=== PATIENT | male | born 1950 | race Caucasian/White ===

== ENCOUNTER 2020-07-07 11:10 | Inpatient (IN) | payer OTHER, SELFPAY ==
--- NOTE | 2020-07-07 11:13 | Emergency Department Report ---
Blank Doc - Documentation Documentation: 6-year-old male that presents with generalized weakness, body aches, cough, di arrhea, abdominal pain. This initial assessment/diagnostic orders/clinical plan/treatment(s) is/are subject to change based on patient's health status, clinical progression and re- assessment by fellow clinical providers in the ED. Further treatment and workup at subsequent clinical providers discretion. Patient/guardians urged not to elope from the ED as their condition may be serious if not clinically assessed and managed. Initial orders include: 1- Patient sent to MAIN ED for further evaluation and treatment 2- labs 3- EKG 4- CXR
[2020-07-07 13:08] LABS: Hematocrit 38.2 % (35.5-45.6); Hemoglobin 12.9 gm/dl (11.8-15.2); Mean Corpuscular HGB Conc 34 % (32-34); Mean Corpuscular Volume 91 fl (84-94); Platelet Count 143 K/mm3 (140-440); Red Blood Count 4.21 M/mm3 (3.65-5.03)
--- NOTE | 2020-07-07 13:10 | XRay Report ---
XR chest routine 2V INDICATION / CLINICAL INFORMATION: Chest Pain COMPARISON: None available. FINDINGS: SUPPORT DEVICES: None. HEART / MEDIASTINUM: No significant abnormality. LUNGS / PLEURA: Is interstitial thickening are likely chronic. No definite airspace disease. Costophr enic sulci are sharp. No pneumothorax. ADDITIONAL FINDINGS: No significant additional findings. IMPRESSION: 1. Mild interstitial thickening is likely chronic. No definite acute abnormality. Signer Name: Marcelo Salas MD Signed: 07/07/2020 1:05 PM Workstation Name: [id number]
[2020-07-07 13:29] LABS: Alanine Aminotransferase 12 units/L (7-56); Albumin 3.7 g/dL (3.9-5); BUN/Creatinine Ratio 25; Blood Urea Nitrogen 30 mg/dL (9-20); Calcium 9.3 mg/dL (8.4-10.2); Hemolysis Index 3
[2020-07-07 13:39] LABS: INR 0.84 (0.87-1.13); Partial Thromboplastin Time 27.2 Sec. (24.2-36.6)
[2020-07-07 14:38] LABS: Basophils % (Manual) 0 % (0.0-1.8); Eosinophils % (Manual) 0 % (0.0-4.3); Total Cells Counted 100
[2020-07-07 14:39] LABS: Platelet Estimate Consistent w Auto; RBC Morphology Normal
[2020-07-07] MEDS ORDERED: ONDANSETRON 4 MG/2 ML INJ IV ONE (14:39)
[2020-07-07] MEDS ORDERED: SODIUM CHLORIDE 0.9% 1000 ML 1,000 ML IV ONE (14:39)
--- NOTE | 2020-07-07 14:50 | Emergency Department Report ---
ED General Adult HPI - General Chief complaint: Weakness Stated complaint: FEEL VERY BAD Time Seen by Provider: 07/07/20 11:11 Source: patient Mode of arrival: Ambulatory Limitations: No Limitations - History of Present Illness Initial comments: Patient is 69 years old male. Translation is done by our patient marketing sales representative from the ER. Patient has history of hypertension and diabetes. Patient presented to the ER complaining of generalized weakness and fatigue and body ache for the last few days. Patient also stated that he has been having diarrhea, watery no blood or mucus. Patient also stated that he has been nauseated but no vomiting. Patient denied any chest pain or shortness of breath. He also denied any cough fever or chills. He is complaining of diffuse abdominal pain. -: days(s) Location: abdomen Consistency: constant - Related Data Previous Rx's Medication Instructions Recorded Last Taken Type Acetaminophen [Acetaminophen TAB] 650 mg PO Q4H PRN tablet 07/10/20 Unknown Rx Insulin Glargine [Lantus VIAL] 18 units SUB-Q QHS #1 units 07/10/20 Unknown Rx NIFEdipine XL [Procardia Xl] 60 mg PO QDAY #30 tablet 07/10/20 Unknown Rx Pantoprazole [Protonix TAB] 40 mg PO BID #14 tablet 07/10/20 Unknown Rx Zolpidem [Ambien] 5 mg PO QHS PRN tablet 07/10/20 Unknown Rx dexAMETHasone [Decadron] 6 mg PO DAILY #7 tablet 07/10/20 Unknown Rx Allergies Allergy/AdvReac Type Severity Reaction Status Date / Time No Known Allergies Allergy Verified 07/07/20 11:13 ED Review of Systems ROS: Stated complaint: FEEL VERY BAD Other details as noted in HPI Comment: All other systems reviewed and negative Constitutional: chills, weakness Respiratory: denies: cough, shortness of breath Gastrointestinal: abdominal pain, nausea Musculoskeletal: denies: back pain Neurological: weakness. denies: headache, numbness, paresthesias, confusion, abnormal gait ED Past Medical Hx - Past Medical History Previous Medical History?: Yes Hx Diabetes: Yes - Surgical History Past Surgical History?: No - Social History Smoking Status: Never Smoker Substance Use Type: None - Medications Home Medications: Home Medications Medication Instructions Recorded Confirmed Last Taken Type Acetaminophen [Acetaminophen TAB] 650 mg PO Q4H PRN tablet 07/10/20 Unknown Rx Insulin Glargine [Lantus VIAL] 18 units SUB-Q QHS #1 units 07/10/20 Unknown Rx NIFEdipine XL [Procardia Xl] 60 mg PO QDAY #30 tablet 07/10/20 Unknown Rx Pantoprazole [Protonix TAB] 40 mg PO BID #14 tablet 07/10/20 Unknown Rx Zolpidem [Ambien] 5 mg PO QHS PRN tablet 07/10/20 Unknown Rx dexAMETHasone [Decadron] 6 mg PO DAILY #7 tablet 07/10/20 Unknown Rx ED Physical Exam - General Limitations: No Limitations General appearance: alert, in no apparent distress - Head Head exam: Present: atraumatic, normocephalic, normal inspection - Eye Eye exam: Present: normal appearance - ENT ENT exam: Present: mucous membranes dry - Neck Neck exam: Present: normal inspection, full ROM. Absent: tenderness, me ningismus - Respiratory Respiratory exam: Present: normal lung sounds bilaterally - Cardiovascular Cardiovascular Exam: Present: regular rate, normal rhythm, normal heart sounds - GI/Abdominal GI/Abdominal exam: Present: soft, tenderness, normal bowel sounds. Absent: distended, guarding, rebound, rigid, organomegaly, mass, bruit, pulsatile mass, hernia - Extremities Exam Extremities exam: Present: normal inspection, full ROM, normal capillary refill - Back Exam Back exam: Present: normal inspection, full ROM. Absent: CVA tenderness (R), CVA tenderness (L) - Neurological Exam Neurological exam: Present: alert, oriented X3, CN II-XII intact. Absent: motor sensory deficit - Psychiatric Psychiatric exam: Present: normal mood - Skin Skin exam: Present: warm, intact, normal color ED Course Vital Signs 07/07/20 07/07/20 07/07/20 11:16 11:17 14:35 Temperature 98.9 F 98.9 F Pulse Rate 84 81 Respiratory 16 18 18 Rate Blood Pressure 193/76 Blood Pressure 193/76 [Left] O2 Sat by Pulse 97 97 100 Oximetry 07/07/20 07/07/20 07/07/20 14:42 15:00 16:00 Temperature Pulse Rate 72 71 73 Respiratory 17 17 17 Rate Blood Pressure Blood Pressure 203/76 207/83 206/78 [Left] O2 Sat by Pulse 98 98 98 Oximetry 07/07/20 07/07/20 07/07/20 17:00 17:30 21:02 Temperature Pulse Rate 69 70 Respiratory 18 18 Rate Blood Pressure 216/78 Blood Pressure 191/75 196/77 [Left] O2 Sat by Pulse 98 98 Oximetry 07/07/20 07/07/20 07/07/20 21:27 21:30 22:00 Temperature Pulse Rate 97 H Respiratory Rate Blood Pressure 216/78 213/82 184/72 Blood Pressure [Left] O2 Sat by Pulse Oximetry 07/07/20 07/07/20 22:43 22:55 Temperature 98.0 F Pulse Rate 78 Respiratory 18 20 Rate Blood Pressure 196/80 Blood Pressure [Left] O2 Sat by Pulse 98 98 Oximetry ED Medical Decision Making - Lab Data Result diagrams: 07/10/20 07:22 07/10/20 07:22 - EKG Data -: EKG Interpreted by Me EKG shows normal: sinus rhythm Rate: normal - EKG Data Interpretation: no acute changes - Radiology Data Radiology results: report reviewed - Medical Decision Making Patient is 69 years old male. Translation is done by our patient marketing sales representative from the ER. Patient has history of hypertension and diabetes. Patient presented to the ER complaining of generalized weakness and fatigue and body ache for the last few days. Patient also stated that he has been having diarrhea, watery no blood or mucus. Patient also stated that he has been nauseated but no vomiting. Patient denied any chest pain or shortness of breath. He also denied any cough fever or chills. He is complaining of diffuse abdominal pain. Patient received normal saline, Zofran. Labs reviewed and is unremarkable. Chest x-ray is negative. CT abdomen and pelvis showed no significant abnormality in the abdomen however there is a groundglass appearance in the lower lungs indicating atypical pneumonia. Patient started on Rocephin and Z ithromax patient is symptoms concerning for COVID-19. COVID-19 test ordered. I discussed the patient with Dr. Domínguez, he agreed to admit the patient to medical service for further management. Critical Care Time: Yes Critical care time in (mins) excluding proc time.: 30 Critical care attestation.: If time is entered above; I have spent that time in minutes in the direct care of this critically ill patient, excluding procedure time. ED Disposition Clinical Impression: Pneumonia of both lower lobes, Suspected COVID-19 virus infection, Abdominal pain, Dehydration Disposition: OP ADMIT IP TO THIS HOSP Is pt being admited?: Yes Condition: Good
--- NOTE | 2020-07-07 18:55 | Cat Scan Report ---
CT ABDOMEN AND PELVIS WITH CONTRAST INDICATION / CLINICAL INFORMATION: abdominal pain. TECHNIQUE: Axial CT images were obtained through the abdomen and pelvis after 100 mL Omnipaque [address] scans at this location are performed using CT dose reduction for ALARA by means of automated exposure control. COMPARISON: None available. FINDINGS: LOWER CHEST: Patchy bibasilar parenchymal densities some of which appear groundglass density. LIVER: Liver is slightly hypodense extra stick of fatty infiltration. No focal abnormality. GALLBLADDER: No significant abnormality. BILE DUCTS: No significant abnormality. PANCREAS: No significant abnormality. SPLEEN: No significant abnormality. ADRENALS: No significant abnormality. RIGHT KIDNEY / URETER: No significant abnormality. LEFT KIDNEY / URETER: No significant abnormality. STOMACH / SMALL BOWEL: Small sliding-type hiatal hernia. No small bowel abnormality. COLON: Mild diverticulosis without acute inflammation. APPENDIX: No significant abnormality. PERITONEUM: No free fluid. No free air. No fluid collection. LYMPH NODES: No significant adenopathy. AORTA / ARTERIES: Mild atherosclerotic calcification without acute abnormality. IVC / VEINS: No significant abnormality. URINARY BLADDER: No significant abnormality. REPRODUCTIVE ORGANS: No significant abnormality. ADDITIONAL FINDINGS: None. SKELETAL SYSTEM: No significant abnormality. IMPRESSION: 1. No inflammatory process or bowel obstruction. 2. Small hiatal hernia. 3. Bibasilar patchy pulmonary opacities with some groundglass densities. Atypical/viral pneumonia serge uld be considered. Signer Name: Janett Glaser MD Signed: 07/07/2020 6:50 PM Workstation Name: [id number]
[2020-07-07] MEDS ORDERED: AZITHROMYCIN 500 MG in SODIUM CHLORIDE 0.9% 250ML 250 ML IV ONE (19:23)
[2020-07-07] MEDS ORDERED: cefTRIAXone/NS 1 GM/50 ML 1 GM/50 ML BAG IV ONE (19:23)
[2020-07-07 20:30] LABS: C-Reactive Protein 6.3 mg/dL (0.00-1.30)
--- NOTE | 2020-07-07 20:59 | Cat Scan Report ---
CT CHEST WITHOUT CONTRAST INDICATION / CLINICAL INFORMATION: Chest pain. Pulmonary opacities on CT abdomen. TECHNIQUE: Axial CT images were obtained through the chest without contrast. All CT scans at this location are p erformed using CT dose reduction for ALARA by means of automated exposure control. COMPARISON: No prior chest CT. CT abdomen from earlier in the day. FINDINGS: HEART: No significant abnormality. CORONARY ARTERY CALCIFICATION: Moderate. THORACIC AORTA: Mild atherosclerotic calcification without acute abnormality. MEDIASTINUM / TORREY: No significant abnormality. PLEURA: No pleural effusion. No pneumothorax. LUNGS: Multifocal, bilateral, patchy pulmonary opacities some of which have groundglass density. Atyp ical/viral pneumonia can have this appearance. ADDITIONAL FINDINGS: None. UPPER ABDOMEN: No significant abnormality. SKELETAL SYSTEM: No significant abnormality. IMPRESSION: 1. Bilateral pulmonary opacities, some of which have groundglass density. Atypical/viral pneumonia sh ould be considered. Signer Name: Janett Glaser MD Signed: 07/07/2020 8:54 PM Workstation Name: [id number]
[2020-07-07 23:03] LABS: Bilirubin,Urine NEG (Negative); Blood,Urine MOD (Negative); Color,Urine Straw (Yellow); Urobilinogen,Urine < 2.0 mg/dL (<2.0); WBC,Urine < 1.0 /HPF (0.0-6.0)
[2020-07-07 23:11] LABS: Protein,Urine >500 mg/dL (Negative)
--- NOTE | 2020-07-08 04:57 | History and Physical Report ---
History of Present Illness Date of examination: 07/07/20 Date of admission: 07/07/20 19:24 Chief complaint: Generalized weakness and diarrhea for 2 to 3 days. History of present illness: 69-year-old male with history of hypertension and diabetes comes to the ER for generalized weakness, fatigue and body aches for the last few days. Patient also has diarrhea which is watery. No blood or mucus. Patient states he has been nauseated but no vomiting. No loss of smell. No loss of taste. No exposure to coronavirus. Also denies fever. Work-up in the emergency room reveals bilateral patchy opacities. Hence patient is being admitted for possible coronavirus infection. - Past Medical History Previous Medical History?: Yes Hx Diabetes: Yes Htn - Surgical History Past Surgical History?: No - Social History Smoking Status: Never Smoker Substance Use Type: None Family history Htn Review of Systems ROS: Stated complaint: FEEL VERY BAD Other details as noted in HPI Comment: All other systems reviewed and negative Constitutional: chills, weakness Respiratory: denies: cough, shortness of breath Gastrointestinal: abdominal pain, nausea Musculoskeletal: denies: back pain Neurological: weakness. denies: headache, numbness, paresthesias, confusion, abnormal gait Medications and Allergies Allergies Allergy/AdvReac Type Severity Reaction Status Date / Time No Known Allergies Allergy Verified 07/07/20 11:13 Exam - Constitutional Vitals: Temp Pulse Resp BP Pulse Ox 98.9 F 97 H 18 216/78 98 07/07/20 11:16 07/07/20 21:27 07/07/20 22:43 07/07/20 21:27 07/07/20 22:43 General appearance: Present: no acute distress, well-nourished - EENT Eyes: Present: PERRL ENT: hearing intact, clear oral mucosa - Neck Neck: Present: supple, normal ROM - Respiratory Respiratory effort: normal Respiratory: bilateral: CTA - Cardiovascular Heart rate: 78 Rhythm: regular Heart Sounds: Present: S1 & S2. Absent: rub, click - Extremities Extremities: pulses symmetrical, No edema Peripheral Pulses: within normal limits - Abdominal General gastrointestinal: Present: soft, non-tender, non-distended, normal bowel sounds Male genitourinary: Present: normal - Integumentary Integumentary: Present: clear, warm, dry - Musculoskeletal Musculoskeletal: gait normal, strength equal bilaterally - Psychiatric Psychiatric: appropriate mood/affect, intact judgment & insight - Neurologic Neurologic: CNII-XII intact, moves all extremities HEART Score - HEART Score Troponin: Troponin T < 0.010 ng/mL (0.00-0.029) 07/07/20 12:32 Results - Labs CBC & Chem 7: 07/07/20 12:32 07/07/20 19:46 Labs: Laboratory Last Values WBC 6.8 K/mm3 (4.5-11.0) 07/07/20 12:32 RBC 4.21 M/mm3 (3.65-5.03) 07/07/20 12:32 Hgb 12.9 gm/dl (11.8-15.2) 07/07/20 12:32 Hct 38.2 % (35.5-45.6) 07/07/20 12:32 MCV 91 fl (84-94) 07/07/20 12:32 MCH 31 pg (28-32) 07/07/20 12:32 MCHC 34 % (32-34) 07/07/20 12:32 RDW 13.0 % (13.2-15.2) L 07/07/20 12:32 Plt Count 143 K/mm3 (140-440) 07/07/20 12:32 [place] % (Auto) Industrial Psychology Teacher 07/07/20 12:32 Add Manual Diff Complete 07/07/20 12:32 Total Counted 100 07/07/20 12:32 Seg Neuts % (Manual) 85.0 % (40.0-70.0) H 07/07/20 12:32 Band Neutrophils % 0 % 07/07/20 12:32 Lymphocytes % (Manual) 9.0 % (13.4-35.0) L 07/07/20 12:32 Reactive Lymphs % (Man) 0 % 07/07/20 12:32 Monocytes % (Manual) 6.0 % (0.0-7.3) 07/07/20 12:32 Eosinophils % (Manual) 0 % (0.0-4.3) 07/07/20 12:32 Basophils % (Manual) 0 % (0.0-1.8) 07/07/20 12:32 Metamyelocytes % 0 % 07/07/20 12:32 Myelocytes % 0 % 07/07/20 12:32 Promyelocytes % 0 % 07/07/20 12:32 Blast Cells % 0 % 07/07/20 12:32 Nucleated RBC % Not Reportable 07/07/20 12:32 Seg Neutrophils # Man 5.8 K/mm3 (1.8-7.7) 07/07/20 12:32 Band Neutrophils # 0.0 K/mm3 07/07/20 12:32 Lymphocytes # (Manual) 0.6 K/mm3 (1.2-5.4) L 07/07/20 12:32 Abs React Lymphs (Man) 0.0 K/mm3 07/07/20 12:32 Monocytes # (Manual) 0.4 K/mm3 (0.0-0.8) 07/07/20 12:32 Eosinophils # (Manual) 0.0 K/mm3 (0.0-0.4) 07/07/20 12:32 Basophils # (Manual) 0.0 K/mm3 (0.0-0.1) 07/07/20 12:32 Metamyelocytes # 0.0 K/mm3 07/07/20 12:32 Myelocytes # 0.0 K/mm3 07/07/20 12:32 Promyelocytes # 0.0 K/mm3 07/07/20 12:32 Blast Cells # 0.0 K/mm3 07/07/20 12:32 WBC Morphology Not Reportable 07/07/20 12:32 Hypersegmented Neuts Not Reportable 07/07/20 12:32 Hyposegmented Neuts Not Reportable 07/07/20 12:32 Hypogranular Neuts Not Reportable 07/07/20 12:32 Smudge Cells Not Reportable 07/07/20 12:32 Toxic Granulation Not Reportable 07/07/20 12:32 Toxic Vacuolation Not Reportable 07/07/20 12:32 Dohle Bodies Not Reportable 07/07/20 12:32 Pelger-Huet Anomaly Not Reportable 07/07/20 12:32 Marv Rods Not Reportable 07/07/20 12:32 Platelet Estimate Consistent w auto 07/07/20 12:32 Clumped Platelets Not Reportable 07/07/20 12:32 Plt Clumps, EDTA Not Reportable 07/07/20 12:32 Large Platelets Not Reportable 07/07/20 12:32 Giant Platelets Not Reportable 07/07/20 12:32 Platelet Satelliting Not Reportable 07/07/20 12:32 Plt Morphology Comment Not Reportable 07/07/20 12:32 RBC Morphology Normal 07/07/20 12:32 Dimorphic RBCs Not Reportable 07/07/20 12:32 Polychromasia Not Reportable 07/07/20 12:32 Hypochromasia Not Reportable 07/07/20 12:32 Poikilocytosis Not Reportable 07/07/20 12:32 Anisocytosis Not Reportable 07/07/20 12:32 Microcytosis Not Reportable 07/07/20 12:32 Macrocytosis Not Reportable 07/07/20 12:32 Spherocytes Not Reportable 07/07/20 12:32 Pappenheimer Bodies Not Reportable 07/07/20 12:32 Sickle Cells Not Reportable 07/07/20 12:32 Target Cells Not Reportable 07/07/20 12:32 Tear Drop Cells Not Reportable 07/07/20 12:32 Ovalocytes Not Reportable 07/07/20 12:32 Helmet Cells Not Reportable 07/07/20 12:32 Klein-Jarales Bodies Not Reportable 07/07/20 12:32 [place] Rings Not Reportable 07/07/20 12:32 [place] Cells Not Reportable 07/07/20 12:32 Bite Cells Not Reportable 07/07/20 12:32 Crenated Cell Not Reportable 07/07/20 12:32 Elliptocytes Not Reportable 07/07/20 12:32 Acanthocytes (Spur) Not Reportable 07/07/20 12:32 Rouleaux Not Reportable 07/07/20 12:32 Hemoglobin C Crystals Not Reportable 07/07/20 12:32 Schistocytes Not Reportable 07/07/20 12:32 Malaria parasites Not Reportable 07/07/20 12:32 Reid Bodies Not Reportable 07/07/20 12:32 Hem Pathologist Commnt No 07/07/20 12:32 PT 11.7 Sec. (12.2-14.9) L 07/07/20 12:32 INR 0.84 (0.87-1.13) L 07/07/20 12:32 APTT 27.2 Sec. (24.2-36.6) 07/07/20 12:32 D-Dimer 567.90 ng/mlDDU (0-234) H 07/07/20 19:46 Sodium 135 mmol/L (137-145) L 07/07/20 12:32 Potassium 4.7 mmol/L (3.6-5.0) 07/07/20 12:32 Chloride 101.3 mmol/L (98-107) 07/07/20 12:32 Carbon Dioxide 20 mmol/L (22-30) L 07/07/20 12:32 Anion Gap 18 mmol/L 07/07/20 12:32 BUN 30 mg/dL (9-20) H 07/07/20 12:32 Creatinine 1.2 mg/dL (0.8-1.3) 07/07/20 12:32 Estimated GFR > 60 ml/min 07/07/20 12:32 BUN/Creatinine Ratio 25 % 07/07/20 12:32 Glucose 162 mg/dL (75-100) H 07/07/20 19:46 POC Glucose 196 (70-105) H 07/07/20 11:35 Calcium 9.3 mg/dL (8.4-10.2) 07/07/20 12:32 Ferritin 729.7 ng/mL (30.0-300.0) H 07/07/20 19:46 Total Bilirubin 0.30 mg/dL (0.1-1.2) 07/07/20 12:32 AST 23 units/L (5-40) 07/07/20 12:32 ALT 12 units/L (7-56) 07/07/20 12:32 Alkaline Phosphatase 67 units/L (35-129) 07/07/20 12:32 Lactate Dehydrogenase 343 units/L (91-180) H 07/07/20 19:46 Troponin T < 0.010 ng/mL (0.00-0.029) 07/07/20 12:32 C-Reactive Protein 6.30 mg/dL (0.00-1.30) H 07/07/20 19:46 Total Protein 6.9 g/dL (6.3-8.2) 07/07/20 12:32 Albumin 3.7 g/dL (3.9-5) L 07/07/20 12:32 Albumin/Globulin Ratio 1.2 % 07/07/20 12:32 Lipase 47 units/L (13-60) 07/07/20 12:32 Urine Color Straw (Yellow) 07/07/20 22:36 Urine Turbidity Clear (Clear) 07/07/20 22:36 Urine pH 5.0 (5.0-7.0) 07/07/20 22:36 Ur Specific [place] 1.044 (1.003-1.030) H 07/07/20 22:36 Urine Protein >500 mg/dL (Negative) 07/07/20 22:36 Urine Glucose (UA) Neg mg/dL (Negative) 07/07/20 22:36 Urine Ketones Tr mg/dL (Negative) 07/07/20 22:36 Urine Blood Mod (Negative) 07/07/20 22:36 Urine Nitrite Neg (Negative) 07/07/20 22:36 Urine Bilirubin Neg (Negative) 07/07/20 22:36 Urine Urobilinogen < 2.0 mg/dL (<2.0) 07/07/20 22:36 Ur Leukocyte Esterase Neg (Negative) 07/07/20 22:36 Urine WBC (Auto) < 1.0 /HPF (0.0-6.0) 07/07/20 22:36 Urine RBC (Auto) 2.0 /HPF (0.0-6.0) 07/07/20 22:36 U Epithel Cells (Auto) < 1.0 /HPF (0-13.0) 07/07/20 22:36 Short CBC 07/07/20 Range/Units 12:32 WBC 6.8 (4.5-11.0) K/mm3 Hgb 12.9 (11.8-15.2) gm/dl Hct 38.2 (35.5-45.6) % Plt Count 143 (140-440) K/mm3 BMP 07/07/20 07/07/20 12:32 19:46 Sodium 135 L Potassium 4.7 Chloride 101.3 Carbon Dioxide 20 L BUN 30 H Creatinine 1.2 Glucose 201 H 162 H Calcium 9.3 Cardiac Enzymes 07/07/20 Range/Units 12:32 Troponin T < 0.010 (0.00-0.029) ng/mL Liver Function 07/07/20 Range/Units 12:32 Total Bilirubin 0.30 (0.1-1.2) mg/dL AST 23 (5-40) units/L ALT 12 (7-56) units/L Alkaline Phosphatase 67 (35-129) units/L Albumin 3.7 L (3.9-5) g/dL Urine 07/07/20 Range/Units 22:36 Urine Color Straw (Yellow) Urine pH 5.0 (5.0-7.0) Ur Specific [place] 1.044 H (1.003-1.030) Urine Protein >500 (Negative) mg/dL Urine Glucose (UA) Neg (Negative) mg/dL Microbiology: Microbiology 07/07/20 19:51 Peripheral/Venous Blood Culture - Preliminary Culture in Progress 07/07/20 19:46 Peripheral/Venous Blood Culture - Preliminary Culture in Progress - Imaging and Cardiology Imaging and Cardiology: Chest x-ray Mild interstitial thickening is likely chronic. No definite acute abnormality. Abdominal CT bibasilar patchy pulmonary opacities with some groundglass densities. Atypical/viral pneumonia should be considered. Small hiatal hernia. No inflammatory process or bowel obstruction. Chest CT bilateral pulmonary opacities some of which have groundglass density. Atypical/viral pneumonia should be considered. Perioperative for not able to do any work so it is a question and sore see orders how this is currently on Xarelto added Dr. Domínguez version and anterior ischemia 6 AM in the morning 5 in the morning Do not worry about it aspirated regular physician not at 5 AM in the morning restraint orders thank you by By all of their own restaurant orders at 5 AM this is what makes him mad [place]/IV: Voiding Method Toilet IV Catheter Type [Right INT / Saline Lock Antecubital] Assessment and Plan Advance Directives: Yes (Full code) Plan of care discussed with patient/family: Yes - Patient Problems (1) Bilateral pneumonia Current Visit: Yes Status: Acute Plan to address problem: Patient initiated on Rocephin and Zithromax (2) Suspected COVID-19 virus infection Current Visit: Yes Status: Acute Plan to address problem: Coronavirus PCR requested. ID consult if necessary (3) T2DM (type 2 diabetes mellitus) Current Visit: Yes Status: Chronic Qualifiers: Diabetes mellitus penitentiary insulin use: without terminal system operator use Plan to address problem: Coverage for now Check hemoglobin A1c (4) Hypertension Current Visit: Yes Status: Chronic Qualifiers: Hypertension type: essential hypertension Qualified Code(s): I10 - Essential (primary) hypertension Plan to address problem: Patient is not on any medication. We will trend the blood pressure and start on antihypertensive medications if necessary (5) Hyponatremia Current Visit: Yes Status: Acute Plan to address problem: Very mild IV normal saline for 12 hours (6) Acute gastroenteritis Current Visit: Yes Status: Acute Plan to address problem: Possible manifestation of COVID IV normal saline for 12 hours. Further if necessary. (7) DVT prophylaxis Current Visit: Yes Status: Acute Plan to address problem: Lovenox 40 mg subcu daily and GI prophylaxis
[2020-07-08] MEDS ORDERED: ACETAMINOPHEN 325 MG TAB PO PRN (05:05)
[2020-07-08] MEDS ORDERED: ONDANSETRON 4 MG/2 ML INJ IV PRN (05:05)
[2020-07-08] MEDS ORDERED: HYDROmorphone 1 MG/1 ML INJ IV PRN (05:06)
[2020-07-08] MEDS ORDERED: oxyCODONE /ACETAMINOPHEN 5-325MG TAB PO PRN (05:06)
[2020-07-08] MEDS ORDERED: SODIUM CHLORIDE 0.9% 1000 ML 1,000 ML IV SCH (05:15)
[2020-07-08] MEDS ORDERED: dexAMETHasone 4 MG/ML VIAL IV SCH (06:00)
[2020-07-08 07:39] LABS: Basophils % (Auto) 0.1 % (0.0-1.8); Hematocrit 36.4 % (35.5-45.6); Hemoglobin 12.5 gm/dl (11.8-15.2); Lymphocytes # (Auto) 0.7 K/mm3 (1.2-5.4); Lymphocytes % (Auto) 8.3 % (13.4-35.0); Mean Corpuscular HGB Conc 34 % (32-34); Mean Corpuscular Volume 90 fl (84-94); Monocytes # (Auto) 1.3 K/mm3 (0.0-0.8); Platelet Count 157 K/mm3 (140-440); Red Blood Count 4.07 M/mm3 (3.65-5.03); Red Cell Distribution Width 13.1 % (13.2-15.2)
[2020-07-08 08:00] LABS: Calcium 8.7 mg/dL (8.4-10.2)
--- NOTE | 2020-07-08 08:34 | Progress Note ---
Assessment and Plan Assessment and plan: (1) Bilateral pneumonia Current Visit: Yes Status: Acute Plan to address problem: Patient initiated on Rocephin and Zithromax CT showed bilateral groundglass opacities/atypical pneumonia (2) Suspected COVID-19 virus infection Current Visit: Yes Status: Acute Plan to address problem: Coronavirus PCR requested. Still pending (3) T2DM (type 2 diabetes mellitus) Current Visit: Yes Status: Chronic Qualifiers: Diabetes mellitus terminologist insulin use: without terminologist use Plan to address problem: Coverage for now A1c is 7.5 (4) Hypertension Current Visit: Yes Status: Chronic Qualifiers: Hypertension type: essential hypertension Qualified Code(s): I10 - Essenti al (primary) hypertension Plan to address problem: I put the patient on amlodipine, lisinopril and PRN hydralazine Continue monitor and adjust as needed (5) Hyponatremia Current Visit: Yes Status: Acute Plan to address problem: Very mild IV normal saline for 12 hours (6) Acute gastroenteritis Current Visit: Yes Status: Acute Plan to address problem: Patient has diarrhea for the last 1 week, still have recurrent diarrhea and persistent vomiting. Continue with IV fluids, Zofran and Reglan scheduled, going to check stool for C. difficile, will do stool work-up. (7) DVT prophylaxis Current Visit: Yes Status: Acute Plan to address problem: Lovenox 40 mg subcu daily and GI prophylaxis History Interval history: Patient was seen and evaluated this morning Patient is complaining epigastric discomfort He has diarrhea and vomiting Hospitalist Physical - Physical exam Narrative exam: Not in cardiopulmonary distress. The patient appeared well nourished and normally developed. Vital signs as documented. Head exam is unremarkable. No scleral icterus . Neck is without jugular venous distension, thyromegaly, or carotid bruits. Lungs are clear to auscultation. Cardiac exam reveals regular rate and Rhythm. Abdominal exam reveals normal bowel sounds, nontender, no organomegaly. Extremities are nonedematous and both femoral and pedal pulses are normal. STOCK CONTROL CLERK: Alert and oriented 3. No focal weakness. - Constitutional Vitals: Temp Pulse Resp BP Pulse Ox 97.8 F 78 20 190/76 97 07/08/20 06:17 07/08/20 06:17 07/08/20 06:17 07/08/20 06:17 07/08/20 06:17 General appearance: Present: no acute distress, well-nourished HEART Score - HEART Score Troponin: Troponin T < 0.010 ng/mL (0.00-0.029) 07/07/20 12:32 Results - Labs CBC & Chem 7: 07/08/20 06:57 10 06:57 Labs: Laboratory Last Values WBC 8.5 K/mm3 (4.5-11.0) 07/08/20 06:57 RBC 4.07 M/mm3 (3.65-5.03) 07/08/20 06:57 Hgb 12.5 gm/dl (11.8-15.2) 07/08/20 06:57 Hct 36.4 % (35.5-45.6) 07/08/20 06:57 MCV 90 fl (84-94) 07/08/20 06:57 MCH 31 pg (28-32) 07/08/20 06:57 MCHC 34 % (32-34) 07/08/20 06:57 RDW 13.1 % (13.2-15.2) L 07/08/20 06:57 Plt Count 157 K/mm3 (140-440) 07/08/20 06:57 Lymph % (Auto) 8.3 % (13.4-35.0) L 07/08/20 06:57 [place] % (Auto) 15.0 % (0.0-7.3) H 07/08/20 06:57 Eos % (Auto) 0.0 % (0.0-4.3) 07/08/20 06:57 Baso % (Auto) 0.1 % (0.0-1.8) 07/08/20 06:57 Lymph # (Auto) 0.7 K/mm3 (1.2-5.4) L 07/08/20 06:57 [place] # (Auto) 1.3 K/mm3 (0.0-0.8) H 07/08/20 06:57 Eos # (Auto) 0.0 K/mm3 (0.0-0.4) 07/08/20 06:57 Baso # (Auto) 0.0 K/mm3 (0.0-0.1) 07/08/20 06:57 Add Manual Diff Complete 07/07/20 12:32 Total Counted 100 07/07/20 12:32 Seg Neutrophils % 76.6 % (40.0-70.0) H 07/08/20 06:57 Seg Neuts % (Manual) 85.0 % (40.0-70.0) H 07/07/20 12:32 Band Neutrophils % 0 % 07/07/20 12:32 Lymphocytes % (Manual) 9.0 % (13.4-35.0) L 07/07/20 12:32 Reactive Lymphs % (Man) 0 % 07/07/20 12:32 Monocytes % (Manual) 6.0 % (0.0-7.3) 07/07/20 12:32 Eosinophils % (Manual) 0 % (0.0-4.3) 07/07/20 12:32 Basophils % (Manual) 0 % (0.0-1.8) 07/07/20 12:32 Metamyelocytes % 0 % 07/07/20 12:32 Myelocytes % 0 % 07/07/20 12:32 Promyelocytes % 0 % 07/07/20 12:32 Blast Cells % 0 % 07/07/20 12:32 Nucleated RBC % Not Reportable 07/07/20 12:32 Seg Neutrophils # 6.5 K/mm3 (1.8-7.7) 07/08/20 06:57 Seg Neutrophils # Man 5.8 K/mm3 (1.8-7.7) 07/07/20 12:32 Band Neutrophils # 0.0 K/mm3 07/07/20 12:32 Lymphocytes # (Manual) 0.6 K/mm3 (1.2-5.4) L 07/07/20 12:32 Abs React Lymphs (Man) 0.0 K/mm3 07/07/20 12:32 Monocytes # (Manual) 0.4 K/mm3 (0.0-0.8) 07/07/20 12:32 Eosinophils # (Manual) 0.0 K/mm3 (0.0-0.4) 07/07/20 12:32 Basophils # (Manual) 0.0 K/mm3 (0.0-0.1) 07/07/20 12:32 Metamyelocytes # 0.0 K/mm3 07/07/20 12:32 Myelocytes # 0.0 K/mm3 07/07/20 12:32 Promyelocytes # 0.0 K/mm3 07/07/20 12:32 Blast Cells # 0.0 K/mm3 07/07/20 12:32 WBC Morphology Not Reportable 07/07/20 12:32 Hypersegmented Neuts Not Reportable 07/07/20 12:32 Hyposegmented Neuts Not Reportable 07/07/20 12:32 Hypogranular Neuts Not Reportable 07/07/20 12:32 Smudge Cells Not Reportable 07/07/20 12:32 Toxic Granulation Not Reportable 07/07/20 12:32 Toxic Vacuolation Not Reportable 07/07/20 12:32 Dohle Bodies Not Reportable 07/07/20 12:32 Pelger-Huet Anomaly Not Reportable 07/07/20 12:32 Marv Rods Not Reportable 07/07/20 12:32 Platelet Estimate Consistent w auto 07/07/20 12:32 Clumped Platelets Not Reportable 07/07/20 12:32 Plt Clumps, EDTA Not Reportable 07/07/20 12:32 Large Platelets Not Reportable 07/07/20 12:32 Giant Platelets Not Reportable 07/07/20 12:32 Platelet Satelliting Not Reportable 07/07/20 12:32 Plt Morphology Comment Not Reportable 07/07/20 12:32 RBC Morphology Normal 07/07/20 12:32 Dimorphic RBCs Not Reportable 07/07/20 12:32 Polychromasia Not Reportable 07/07/20 12:32 Hypochromasia Not Reportable 07/07/20 12:32 Poikilocytosis Not Reportable 07/07/20 12:32 Anisocytosis Not Reportable 07/07/20 12:32 Microcytosis Not Reportable 07/07/20 12:32 Macrocytosis Not Reportable 07/07/20 12:32 Spherocytes Not Reportable 07/07/20 12:32 Pappenheimer Bodies Not Reportable 07/07/20 12:32 Sickle Cells Not Reportable 07/07/20 12:32 Target Cells Not Reportable 07/07/20 12:32 Tear Drop Cells Not Reportable 07/07/20 12:32 Ovalocytes Not Reportable 07/07/20 12:32 Helmet Cells Not Reportable 07/07/20 12:32 [place] Bodies Not Reportable 07/07/20 12:32 [place] Rings Not Reportable 07/07/20 12:32 Mike Cells Not Reportable 07/07/20 12:32 Bite Cells Not Reportable 07/07/20 12:32 Crenated Cell Not Reportable 07/07/20 12:32 Elliptocytes Not Reportable 07/07/20 12:32 Acanthocytes (Spur) Not Reportable 07/07/20 12:32 Rouleaux Not Reportable 07/07/20 12:32 Hemoglobin C Crystals Not Reportable 07/07/20 12:32 Schistocytes Not Reportable 07/07/20 12:32 Malaria parasites Not Reportable 07/07/20 12:32 Reid Bodies Not Reportable 07/07/20 12:32 Hem Pathologist Commnt No 07/07/20 12:32 PT 11.7 Sec. (12.2-14.9) L 07/07/20 12:32 INR 0.84 (0.87-1.13) L 07/07/20 12:32 APTT 27.2 Sec. (24.2-36.6) 07/07/20 12:32 D-Dimer 567.90 ng/mlDDU (0-234) H 07/07/20 19:46 Sodium 136 mmol/L (137-145) L 07/08/20 06:57 Potassium 4.7 mmol/L (3.6-5.0) 07/08/20 06:57 Chloride 101.9 mmol/L (98-107) 07/08/20 06:57 Carbon Dioxide 20 mmol/L (22-30) L 07/07/20 12:32 Anion Gap 18 mmol/L 07/07/20 12:32 BUN 30 mg/dL (9-20) H 07/08/20 06:57 Creatinine 1.3 mg/dL (0.8-1.3) 07/08/20 06:57 Estimated GFR 55 ml/min 07/08/20 06:57 BUN/Creatinine Ratio 23 % 07/08/20 06:57 Glucose 250 mg/dL (75-100) H 07/08/20 06:57 POC Glucose 233 (70-105) H 07/08/20 07:47 Hemoglobin A1c 7.5 % (4-6) H 07/08/20 06:57 Calcium 8.7 mg/dL (8.4-10.2) 07/08/20 06:57 Ferritin 729.7 ng/mL (30.0-300.0) H 07/07/20 19:46 Total Bilirubin 0.30 mg/dL (0.1-1.2) 07/08/20 06:57 AST 24 units/L (5-40) 07/08/20 06:57 ALT 13 units/L (7-56) 07/08/20 06:57 Alkaline Phosphatase 65 units/L (35-129) 07/08/20 06:57 Lactate Dehydrogenase 343 units/L (91-180) H 07/07/20 19:46 Troponin T < 0.010 ng/mL (0.00-0.029) 07/07/20 12:32 C-Reactive Protein 6.30 mg/dL (0.00-1.30) H 07/07/20 19:46 Total Protein 6.4 g/dL (6.3-8.2) 07/08/20 06:57 Albumin 3.0 g/dL (3.9-5) L 07/08/20 06:57 Albumin/Globulin Ratio 0.9 % 07/08/20 06:57 Lipase 47 units/L (13-60) 07/07/20 12:32 Urine Color Straw (Yellow) 07/07/20 22:36 Urine Turbidity Clear (Clear) 07/07/20 22:36 Urine pH 5.0 (5.0-7.0) 07/07/20 22:36 Ur Specific [place] 1.044 (1.003-1.030) H 07/07/20 22:36 Urine Protein >500 mg/dL (Negative) 07/07/20 22:36 Urine Glucose (UA) Neg mg/dL (Negative) 07/07/20 22:36 Urine Ketones Tr mg/dL (Negative) 07/07/20 22:36 Urine Blood Mod (Negative) 07/07/20 22:36 Urine Nitrite Neg (Negative) 07/07/20 22:36 Urine Bilirubin Neg (Negative) 07/07/20 22:36 Urine Urobilinogen < 2.0 mg/dL (<2.0) 07/07/20 22:36 Ur Leukocyte Esterase Neg (Negative) 07/07/20 22:36 Urine WBC (Auto) < 1.0 /HPF (0.0-6.0) 07/07/20 22:36 Urine RBC (Auto) 2.0 /HPF (0.0-6.0) 07/07/20 22:36 U Epithel Cells (Auto) < 1.0 /HPF (0-13.0) 07/07/20 22:36 Microbiology: Microbiology 07/07/20 19:51 Peripheral/Venous Blood Culture - Preliminary Culture in Progress 07/07/20 19:46 Peripheral/Venous Blood Culture - Preliminary Culture in Progress Cochran/IV: Voiding Method Toilet IV Catheter Type [Right INT / Saline Lock Antecubital] Active Medications - Current Medications Current Medications: Generic Name Dose Route Start Last Admin Trade Name Freq PRN Reason Stop Dose Admin Acetaminophen 650 mg 07/08/20 05:05 Tylenol PO Q4H PRN Pain MILD(1-3)/Fever >100.5/LORA Azithromycin 500 mg 07/09/20 10:00 Zithromax PO QDAY [facility] Dexamethasone 6 mg 07/08/20 10:00 Decadron PO 07/17/20 10:01 DAILY GIRISH Enoxaparin Sodium 40 mg 07/08/20 10:00 Enoxaparin SUB-Q QDAY GIRISH Famotidine 20 mg 07/08/20 10:00 Pepcid PO BID GIRISH Hydromorphone HCl 0.5 mg 07/08/20 05:06 Dilaudid IV Q3H PRN Pain , Severe (7-10) Sodium Chloride 1,000 mls @ 75 mls/hr 07/08/20 05:15 07/08/20 06:17 Nacl 0.9% 1000 Ml IV 07/08/20 18:00 75 mls/hr DIRECT GIRISH Administration Ceftriaxone Sodium 2 gm in 100 mls @ 200 mls/hr 07/08/20 10:00 Rocephin/Ns 2 Gm/100 Ml IV Q24HR GIRISH Protocol Azithromycin 500 mg/ Sodium 250 mls @ 250 mls/hr 07/08/20 10:00 Chloride IV 07/08/20 16:00 Q24HR GIRISH Protocol Insulin Human Lispro 0 unit 07/08/20 07:30 Humalog SUB-Q ACHS GIRISH Protocol Ondansetron HCl 4 mg 07/08/20 05:05 Zofran IV Q8H PRN Nausea And Vomiting Oxycodone/Acetaminophen 1 tab 07/08/20 05:06 Percocet 5/325 PO Q6H PRN Pain, Moderate (4-6) Sodium Chloride 10 ml 07/08/20 10:00 Sodium Chloride Flush Syringe 10 Ml IV BID GIRISH Sodium Chloride 10 ml 07/08/20 05:05 Sodium Chloride Flush Syringe 10 Ml IV PRN PRN LINE FLUSH
[2020-07-08] MEDS: INSULIN LISPRO 100 UNIT/ML VIAL 3 mL SUB-Q SCH ×6 (08:51→23:46)
[2020-07-08] MEDS: ENOXAPARIN 40 MG/0.4 ML INJ SUB-Q SCH (09:14)
[2020-07-08] MEDS: DEXAMETHASONE 4 MG TAB PO SCH (09:14)
[2020-07-08] MEDS ORDERED: FAMOTIDINE 20 MG/2 ML INJ IV SCH (10:00)
[2020-07-08] MEDS ORDERED: FAMOTIDINE 20 MG TAB PO SCH (10:00)
[2020-07-08] MEDS ORDERED: AZITHROMYCIN 500 MG in SODIUM CHLORIDE 0.9% 250ML 250 ML IV SCH (10:00)
[2020-07-08] MEDS ORDERED: cefTRIAXone/NS 2 GM/100 ML 2 GM/100 ML BAG IV SCH (10:00)
[2020-07-08] MEDS: METOCLOPRAMIDE 10 MG/2 ML INJ IV SCH ×3 (11:37→23:45)
[2020-07-08] MEDS ORDERED: hydrALAZINE 20 MG/1 ML INJ IV PRN (11:47)
[2020-07-08] MEDS: amLODIPine 10 MG TAB PO SCH (12:35)
[2020-07-08] MEDS: PANTOPRAZOLE 40 MG INJ IV SCH ×2 (12:35→23:45)
[2020-07-08] MEDS: LISINOPRIL 40 MG TAB PO SCH (12:36)
--- NOTE | 2020-07-08 14:41 | Consultation ---
History of Present Illness - Reason for Consult Consult date: 07/08/20 pneumonia, diarrhea Requesting physician: VIVIAN MONTEIRO - History of Present Illness The patient is a 69-year-old male with diabetes, hypertension admitted with generalized weakness, diarrhea, fatigue and body aches for the last few days. Patient has been afebrile. Labs showed no leukocytosis, d-dimer 567, CRP 6.3, ferritin 729, LDH 343, procalcitonin 0.06. CT chest revealed diffuse bilateral pulmonary opacities, CT abdomen and pelvis did not reveal any acute intra- abdominal process. COVID-19 PCR is pending. Infectious diseases was consulted for additional evaluation. Patient is currently on room air. Review of Systems: reviewed in the chart, unable to obtain directly due to PPE preservation and minimize risk of transmission Medications and Allergies Allergies Allergy/AdvReac Type Severity Reaction Status Date / Time No Known Allergies Allergy Verified 07/07/20 11:13 Active Meds: Active Medications Acetaminophen (Tylenol) 650 mg PO Q4H PRN PRN Reason: Pain MILD(1-3)/Fever >100.5/LORA Amlodipine Besylate (Amlodipine) 10 mg PO QDAY [facility] Last Admin: 07/08/20 12:35 Dose: 10 mg Documented by: Dexamethasone (Decadron) 6 mg PO DAILY [facility] Stop: 07/17/20 10:01 Last Admin: 07/08/20 09:14 Dose: 6 mg Documented by: Enoxaparin Sodium (Enoxaparin) 40 mg SUB-Q QDAY [facility] Last Admin: 07/08/20 09:14 Dose: 40 mg Documented by: Hydralazine HCl (Apresoline) 10 mg IV Q4HR PRN PRN Reason: Hypertension Hydromorphone HCl (Dilaudid) 0.5 mg IV Q3H PRN PRN Reason: Pain , Severe (7-10) Last Admin: 07/08/20 14:29 Dose: 0.5 mg Documented by: Sodium Chloride (Nacl 0.9% 1000 Ml) 1,000 mls @ 75 mls/hr IV DIRECT [facility] Stop: 07/08/20 18:00 Last Admin: 07/08/20 06:17 Dose: 75 mls/hr Documented by: Ceftriaxone Sodium (Rocephin/Ns 2 Gm/100 Ml) 2 gm in 100 mls @ 200 mls/hr IV Q24HR [facility]; Protocol Last Admin: 07/08/20 09:14 Dose: 200 mls/hr Documented by: Azithromycin 500 mg/ Sodium (Chloride) 250 mls @ 250 mls/hr IV Q24HR [facility]; Protocol Stop: 07/08/20 16:00 Last Admin: 07/08/20 09:14 Dose: 250 mls/hr Documented by: [facility]ulin [facility] ([facility]) [facility] Insulin Human Lispro (Humalog) 0 unit SUB-Q [facility]; Protocol Last Admin: 07/08/20 11:37 Dose: 3 unit Documented by: Insulin Human Lispro (Humalog) 5 unit SUB-Q [facility] Last Admin: 07/08/20 11:37 Dose: 5 unit Documented by: Lisinopril (Zestril) 40 mg PO QDAY [facility] Last Admin: 07/08/20 12:36 Dose: 40 mg Documented by: Metoclopramide HCl (Reglan) 10 mg IV [facility] Last Admin: 07/08/20 11:37 Dose: 10 mg Documented by: Ondansetron HCl (Zofran) 4 mg IV Q8H PRN PRN Reason: Nausea And Vomiting Oxycodone/Acetaminophen (Percocet 5/325) 1 tab PO Q6H PRN PRN Reason: Pain, Moderate (4-6) Pantoprazole Sodium (Protonix) 40 mg IV BID [facility] Stop: 07/08/20 23:59 Last Admin: 07/08/20 12:35 Dose: 40 mg Documented by: Pantoprazole Sodium (Protonix) 40 mg PO BID [facility] Sodium Chloride (Sodium Chloride Flush Syringe 10 Ml) 10 ml IV BID [facility] Last Admin: 07/08/20 09:15 Dose: 10 ml Documented by: Sodium Chloride (Sodium Chloride Flush Syringe 10 Ml) 10 ml IV PRN PRN PRN Reason: LINE FLUSH Physical Examination - Physical Exam Narrative exam: Physical Exam (reviewed in chart due to PPE conservation and minimize risk of transmission) Constitutional: limited due to PPE conservation strategy Head, Ears, Nose: limited due to PPE conservation strategy Eyes: limited due to PPE conservation strategy Neck: limited due to PPE conservation strategy Oral: limited due to PPE conservation strategy Cardiovascular: limited due to PPE conservation strategy Respiratory: limited due to PPE conservation strategy GI: limited due to PPE conservation strategy Musculoskeletal: limited due to PPE conservation strategy Skin: limited due to PPE conservation strategy Hem/Lymphatic: limited due to PPE conservation strategy Psych: limited due to PPE conservation strategy Neurological: limited due to PPE conservation strategy - Constitutional Vitals: Vital Signs Temp Pulse Resp BP Pulse Ox 99.0 F 75 18 191/74 93 07/08/20 11:23 07/08/20 11:23 07/08/20 11:23 07/08/20 12:36 07/08/20 11:23 Temperature -Last 24 Hours Temperature 99.0 F Temperature 97.8 F Temperature 98.0 F Results - Labs CBC & Chem 7: 07/08/20 06:57 07/08/20 06:57 Labs: Abnormal lab results 07/07/20 07/07/20 07/07/20 Range/Units 12:32 19:46 19:46 RDW (13.2-15.2) % Lymph % (Auto) (13.4-35.0) % [place] % (Auto) (0.0-7.3) % Lymph # (Auto) (1.2-5.4) K/mm3 [place] # (Auto) (0.0-0.8) K/mm3 Seg Neutrophils % (40.0-70.0) % Seg Neuts % (Manual) 85.0 H (40.0-70.0) % Lymphocytes % (Manual) 9.0 L (13.4-35.0) % Lymphocytes # (Manual) 0.6 L (1.2-5.4) K/mm3 D-Dimer 567.90 H (0-234) ng/mlDDU Sodium (137-145) mmol/L Carbon Dioxide (22-30) mmol/L BUN (9-20) mg/dL Glucose 162 H (75-100) mg/dL POC Glucose (70-105) Hemoglobin A1c (4-6) % Ferritin (30.0-300.0) ng/mL Lactate Dehydrogenase 343 H (91-180) units/L C-Reactive Protein 6.30 H (0.00-1.30) mg/dL Albumin (3.9-5) g/dL Ur Specific [place] (1.003-1.030) 07/07/20 07/07/20 07/08/20 Range/Units 19:46 22:36 06:57 RDW 13.1 L (13.2-15.2) % Lymph % (Auto) 8.3 L (13.4-35.0) % [place] % (Auto) 15.0 H (0.0-7.3) % Lymph # (Auto) 0.7 L (1.2-5.4) K/mm3 [place] # (Auto) 1.3 H (0.0-0.8) K/mm3 Seg Neutrophils % 76.6 H (40.0-70.0) % Seg Neuts % (Manual) (40.0-70.0) % Lymphocytes % (Manual) (13.4-35.0) % Lymphocytes # (Manual) (1.2-5.4) K/mm3 D-Dimer (0-234) ng/mlDDU Sodium (137-145) mmol/L Carbon Dioxide (22-30) mmol/L BUN (9-20) mg/dL Glucose (75-100) mg/dL POC Glucose (70-105) Hemoglobin A1c (4-6) % Ferritin 729.7 H (30.0-300.0) ng/mL Lactate Dehydrogenase (91-180) units/L C-Reactive Protein (0.00-1.30) mg/dL Albumin (3.9-5) g/dL Ur Specific [place] 1.044 H (1.003-1.030) 07/08/20 07/08/20 07/08/20 Range/Units 06:57 06:57 07:47 RDW (13.2-15.2) % Lymph % (Auto) (13.4-35.0) % [place] % (Auto) (0.0-7.3) % Lymph # (Auto) (1.2-5.4) K/mm3 [place] # (Auto) (0.0-0.8) K/mm3 Seg Neutrophils % (40.0-70.0) % Seg Neuts % (Manual) (40.0-70.0) % Lymphocytes % (Manual) (13.4-35.0) % Lymphocytes # (Manual) (1.2-5.4) K/mm3 D-Dimer (0-234) ng/mlDDU Sodium 136 L (137-145) mmol/L Carbon Dioxide 18 L (22-30) mmol/L BUN 30 H (9-20) mg/dL Glucose 250 H (75-100) mg/dL POC Glucose 233 H (70-105) Hemoglobin A1c 7.5 H (4-6) % Ferritin (30.0-300.0) ng/mL Lactate Dehydrogenase (91-180) units/L C-Reactive Protein (0.00-1.30) mg/dL Albumin 3.0 L (3.9-5) g/dL Ur Specific [place] (1.003-1.030) 07/08/20 Range/Units 11:37 RDW (13.2-15.2) % Lymph % (Auto) (13.4-35.0) % [place] % (Auto) (0.0-7.3) % Lymph # (Auto) (1.2-5.4) K/mm3 [place] # (Auto) (0.0-0.8) K/mm3 Seg Neutrophils % (40.0-70.0) % Seg Neuts % (Manual) (40.0-70.0) % Lymphocytes % (Manual) (13.4-35.0) % Lymphocytes # (Manual) (1.2-5.4) K/mm3 D-Dimer (0-234) ng/mlDDU Sodium (137-145) mmol/L Carbon Dioxide (22-30) mmol/L BUN (9-20) mg/dL Glucose (75-100) mg/dL POC Glucose 256 H (70-105) Hemoglobin A1c (4-6) % Ferritin (30.0-300.0) ng/mL Lactate Dehydrogenase (91-180) units/L C-Reactive Protein (0.00-1.30) mg/dL Albumin (3.9-5) g/dL Ur Specific [place] (1.003-1.030) - Imaging and Cardiology Chest x-ray: report reviewed, image reviewed (b/l pneumonia) Assessment and Plan Cultures: Coronavirus PCR: Pending Blood culture: in process A/P: 69-year-old male with diabetes, hypertension admitted with generalized weakness, diarrhea, fatigue and body aches for the last few days: #Bilateral pneumonia: COVID-19 PCR pending. Procalcitonin is low. Inflammatory markers elevated #Diarrhea: Follow-up C. difficile PCR however likely related to COVID-19 Recs: High suspicion for COVID-19, follow-up COVID-19 PCR Currently, patient is not hypoxic and is on room air but is at risk of decompensation, hence if positive, depending on oxygen saturation, may need to consider Remdesivir Already on steroids by primary team abx discontinued, procal is low prophylactic anticoagulation based on d-dimer trend ferritin, LDH, d-dimer, CRP every 2-3 days for risk stratification and to assess disease progression f/u C.difficile PCR Dewey Del Cid MD, FACP [facility] ([facility] O: [phone] F: [phone]
[2020-07-08] MEDS ORDERED: ZOLPIDEM 5 MG TAB PO PRN (15:28)
[2020-07-08] MEDS ORDERED: INSULIN GLARGINE 100 UNITS/ML SUB-Q SCH (22:00)
[2020-07-09] MEDS: INSULIN LISPRO 100 UNIT/ML VIAL 3 mL SUB-Q SCH ×7 (09:28→22:30)
[2020-07-09] MEDS: METOCLOPRAMIDE 10 MG/2 ML INJ IV SCH ×4 (09:28→22:29)
[2020-07-09] MEDS: DEXAMETHASONE 4 MG TAB PO SCH (09:29)
[2020-07-09] MEDS: amLODIPine 10 MG TAB PO SCH (09:29)
[2020-07-09] MEDS: LISINOPRIL 40 MG TAB PO SCH (09:29)
[2020-07-09] MEDS: PANTOPRAZOLE 40 MG TAB PO SCH ×2 (09:30→22:29)
[2020-07-09] MEDS: ENOXAPARIN 40 MG/0.4 ML INJ SUB-Q SCH (09:30)
[2020-07-09] MEDS ORDERED: AZITHROMYCIN 250 MG TAB PO SCH (10:00)
--- NOTE | 2020-07-09 12:33 | Progress Note ---
Assessment and Plan - Patient Problems (1) Acute gastroenteritis Current Visit: Yes Status: Acute Plan to address problem: Acute gastroenteritis we will treat patient with nausea for nausea with Zofran. This seems to have been successful. We will also start patient on proton pump inhibitor. May require EGD as outpatient. (2) Bilateral pneumonia Current Visit: Yes Status: Acute Plan to address problem: Patient has positive serolog for COVID-19 infection. Patient is not hypoxic on room air however has dyspnea on exertion at this time. Also profound weakness and fatigue. Some of this could be coming from dehydration as well. Aggressive IV volume replacement. Will start patient on dexamethasone 6 mg for 10 days. At present appears to be a candidate for antiviral at this time. (3) Dehydration Current Visit: Yes Status: Acute (4) Hyponatremia Current Visit: Yes Status: Acute Plan to address problem: Treat underlying IV normal saline. (5) Pneumonia of both lower lobes Current Visit: Yes Status: Acute Plan to address problem: Secondary to COVID-19 pneumonia. Again patient is not hypoxic on room air. Still has dyspnea on exertion. Dexamethasone. Appears to be a candidate for Remdesivir Continue supportive care. Inflammatory markers elevated. Follow inflammatory markers for wrist stratification. (6) Acute kidney injury Current Visit: Yes Status: Acute Plan to address problem: Secondary to pre-renal azotemia. Patient also dry on physical exam. Most likely etiology viral pneumonia and GI losses from diarrhea and vomiting. Will treat underlying etiology of diarrhea with Lomotil if it returns. For now has resolved. Does not have a clinical picture consistent with C. difficile colitis. (7) Uncontrolled diabetes mellitus Current Visit: Yes Status: Acute Plan to address problem: Was well controlled prior to hospitalization with an A1c of 7.5. Most likely etiology for acute hyperglycemia is steroid use. Will increase Lantus to 18 units nightly. Continue sliding scale insulin coverage. Subjective Date of service: 07/09/20 Principal diagnosis: Pneumonia Interval history: 68-year-old male with a history of diabetes hypertension presents with weakness diarrhea and hypoxemia. Initial work-up revealed patient to have bilateral pneumonia. Today hospital course complicated by positive COVID-19 serology. Patient at present is not hypoxic at rest but does have dyspnea on exertion. Patient denies chest pain now and diarrhea appears to have resolved. Current symptoms of diarrhea is not consistent with C. difficile at this time. Most likely secondary to viral etiology. Objective - Constitutional Vitals: Vital Signs - 12hr 07/09/20 07/09/20 07/09/20 05:47 09:29 11:32 Temperature 99.0 F Pulse Rate 64 Respiratory 20 Rate Blood Pressure 175/68 162/66 O2 Sat by Pulse 95 95 Oximetry General appearance: Present: no acute distress, mild distress, well-nourished, other (Mild distress on occasions after talking for extended amount of time.) - EENT Eyes: PERRL, EOM intact ENT: hearing intact, clear oral mucosa Ears: bilateral: normal - Neck Neck: supple, normal ROM - Respiratory Respiratory effort: normal Respiratory: bilateral: diminished, rhonchi - Breasts Breasts: normal - Cardiovascular Rhythm: regular Heart Sounds: Present: S1 & S2. Absent: gallop, rub Extremities: pulses intact, No edema, normal color, Full ROM - Gastrointestinal General gastrointestinal: Present: soft, non-tender, non-distended, normal bowel sounds - Genitourinary Male genitourinary: normal - Integumentary Integumentary: clear, warm, dry - Musculoskeletal Musculoskeletal: 1, strength equal bilaterally - Neurologic Neurologic: moves all extremities - Psychiatric Psychiatric: memory intact, appropriate mood/affect, intact judgment & insight - Labs CBC & Chem 7: 07/08/20 06:57 07/08/20 06:57 Labs: Abnormal lab results 07/08/20 07/08/20 07/08/20 Range/Units 10:26 16:30 22:12 POC Glucose 342 H 311 H (70-105) Coronavirus (PCR) Positive A (Negative) 07/09/20 07/09/20 Range/Units 08:16 11:45 POC Glucose 301 H 280 H (70-105) Coronavirus (PCR) (Negative) HEART Score - HEART Score Troponin: Troponin T < 0.010 ng/mL (0.00-0.029) 07/07/20 12:32
--- NOTE | 2020-07-09 13:11 | Progress Note ---
Assessment and Plan Cultures: Coronavirus PCR: positive Blood culture: in process A/P: 69-year-old male with diabetes, hypertension admitted with generalized weakness, diarrhea, fatigue and body aches for the last few days: #Bilateral pneumonia: secondary to COVID-19 PCR: positive. Procalcitonin is low. Inflammatory markers elevated #Diarrhea: likely related to COVID-19 Recs: Currently, patient is not hypoxic remains on room air, does not meet criteria for Remdesivir Already on steroids by primary team, complete 10 days prophylactic anticoagulation based on d-dimer trend ferritin, LDH, d-dimer, CRP every 2-3 days for risk stratification and to assess disease progression Dewey Del Cid MD, FACP [facility] ([facility] O: [phone] F: [phone] Subjective Date of service: 07/09/20 Principal diagnosis: Pneumonia Interval history: No fever. Remains on room air. Objective - Exam Narrative Exam: Physical Exam (reviewed in chart due to PPE conservation and minimize risk of transmission) Constitutional: limited due to PPE conservation strategy Head, Ears, Nose: limited due to PPE conservation strategy Eyes: limited due to PPE conservation strategy Neck: limited due to PPE conservation strategy Oral: limited due to PPE conservation strategy Cardiovascular: limited due to PPE conservation strategy Respiratory: limited due to PPE conservation strategy GI: limited due to PPE conservation strategy Musculoskeletal: limited due to PPE conservation strategy Skin: limited due to PPE conservation strategy Hem/Lymphatic: limited due to PPE conservation strategy Psych: limited due to PPE conservation strategy Neurological: limited due to PPE conservation strategy - Constitutional Vitals: Vital Signs Temp Pulse Resp BP Pulse Ox 99.0 F 64 20 162/66 95 07/09/20 05:47 07/09/20 05:47 07/09/20 05:47 07/09/20 09:29 07/09/20 11:32 Temperature -Last 24 Hours Temperature 99.0 F Temperature 98.7 F Temperature 98.5 F - Labs CBC & Chem 7: 07/08/20 06:57 07/08/20 06:57 Labs: Abnormal lab results 07/08/20 07/08/20 07/08/20 Range/Units 10:26 16:30 22:12 POC Glucose 342 H 311 H (70-105) Coronavirus (PCR) Positive A (Negative) 07/09/20 07/09/20 Range/Units 08:16 11:45 POC Glucose 301 H 280 H (70-105) Coronavirus (PCR) (Negative)
[2020-07-09 15:19] LABS: Calcium 8.6 mg/dL (8.4-10.2)
[2020-07-09] MEDS: SODIUM CHLORIDE 0.9% 1000 ML 1,000 ML IV SCH (16:33)
[2020-07-09] MEDS ORDERED: INSULIN GLARGINE 100 UNITS/ML SUB-Q SCH (22:00)
[2020-07-10] MEDS: SODIUM CHLORIDE 0.9% 1000 ML 1,000 ML IV SCH (00:07)
[2020-07-10 08:10] LABS: BUN/Creatinine Ratio 29; Blood Urea Nitrogen 26 mg/dL (9-20); Calcium 8.1 mg/dL (8.4-10.2); Hemolysis Index 7
[2020-07-10 08:13] LABS: Basophils % (Auto) 0.3 % (0.0-1.8); Hematocrit 36.5 % (35.5-45.6); Hemoglobin 12.4 gm/dl (11.8-15.2); Lymphocytes # (Auto) 0.9 K/mm3 (1.2-5.4); Lymphocytes % (Auto) 5.6 % (13.4-35.0); Mean Corpuscular HGB Conc 34 % (32-34); Mean Corpuscular Volume 90 fl (84-94); Monocytes # (Auto) 1.4 K/mm3 (0.0-0.8); Monocytes % (Auto) 9.2 % (0.0-7.3); Platelet Count 187 K/mm3 (140-440); Red Blood Count 4.04 M/mm3 (3.65-5.03); Red Cell Distribution Width 13.1 % (13.2-15.2)
[2020-07-10] MEDS: DEXAMETHASONE 4 MG TAB PO SCH (09:34)
[2020-07-10] MEDS: ENOXAPARIN 40 MG/0.4 ML INJ SUB-Q SCH (09:34)
[2020-07-10] MEDS: LISINOPRIL 40 MG TAB PO SCH (09:35)
[2020-07-10] MEDS: PANTOPRAZOLE 40 MG TAB PO SCH (09:35)
[2020-07-10] MEDS: METOCLOPRAMIDE 10 MG/2 ML INJ IV SCH ×2 (09:36→14:11)
[2020-07-10] MEDS: INSULIN LISPRO 100 UNIT/ML VIAL 3 mL SUB-Q SCH ×4 (09:38→14:09)
[2020-07-10] MEDS ORDERED: NIFEdipine XL 60 MG TAB PO SCH (10:00)
--- NOTE | 2020-07-10 11:38 | Discharge Summary ---
Providers - Providers Date of Admission: 07/07/20 19:24 Date of discharge: 07/10/20 Attending physician: HITESH ROBBINS 07/08/20 11:52 Consult to Physician [CONS] Routine Comment: Consulting Provider: ELLE RINCON Physician Instructions: Reason For Exam: URI, diarrhea Primary care physician: DAVID PALOMINO MD Hospitalization Condition: Good Hospital course: Patient admitted for arthralgias myalgias some shortness of breath and dry nonproductive cough. Was found to be positive for COVID-19 serology. Patient was not hypoxic throughout hospital stay. Patient walking exercise sets were greater than 95. Patient had been positive for approximately 5 days. Seem to be stable doing well oxygenating well able to walk around without hypoxemia schedule educated to go home and self quarantine for total of 14 days. They will give patient additional 10 days he has good understanding of quarantine. Both in Hebrew and Turkmen. Disposition: DC-01 TO HOME OR SELFCARE - Discharge Diagnoses (1) Acute gastroenteritis Status: Acute Comment: Was secondary to COVID-19. Resolved (2) Bilateral pneumonia Status: Acute Comment: Secondary to Kovic 19 pneumonia. Patient is self quarantine. No cough no hypoxemia stable. (3) Dehydration Status: Resolved (4) Hyponatremia Status: Resolved (5) Pneumonia of both lower lobes Status: Acute (6) Acute kidney injury Status: Acute Comment: Resolved with IV volume hydration. Echo dated prerenal azotemia. (7) Uncontrolled diabetes mellitus Status: Acute Comment: We titrated insulin up to 18 units. We will continue this while he use the dexamethasone. Patient is been educated that insulin should come back down to normal after dexamethasone is complete and or follow with primary care physician. I have given patient's office number in case he gets any any problems. Core Measure Documentation - Palliative Care Palliative Care/ Comfort Measures: Not Applicable - Core Measures Any of the following diagnoses?: none Exam - Constitutional Vitals: Temp Pulse Resp BP Pulse Ox 98.5 F 69 18 183/64 94 07/10/20 05:06 07/10/20 09:35 07/10/20 05:06 07/10/20 09:35 07/10/20 05:06 General appearance: Present: no acute distress, well-nourished Plan Activity: other Weight Bearing Status: Full Weight Bearing Diet: diabetic Follow up with: DAVID PALOMINO MD [Primary Care Provider] - 3-5 Days Prescriptions: dexAMETHasone [Decadron] 6 mg PO DAILY #7 tablet Insulin Glargine [Lantus VIAL] 18 units SUB-Q QHS #1 units NIFEdipine XL [Procardia Xl] 60 mg PO QDAY #30 tablet Pantoprazole [Protonix TAB] 40 mg PO BID #14 tablet
[2020-07-10 13:17] VITALS: BP 147/73
[2020-07-10] MEDS ORDERED: INSULIN GLARGINE 100 UNITS/ML SUB-Q SCH (22:00)
== END 2020-07-10 15:40 | disposition home or self-care (01) | DRG 177 ==
LOC: ED 11:10 → OBSVTOIN 19:24 → 3A 19:24
PROVIDERS: ADMIT Internal Medicine; ATTEND Internal Medicine
DX: U07.1 COVID-19 (principal); J12.89 Other viral pneumonia; E87.1 Hypo-osmolality and hyponatremia; N17.9 Acute kidney failure, unspecified; E86.0 Dehydration; K52.9 Noninfective gastroenteritis and colitis, unspecified; M25.59 Pain in other specified joint; E11.9 Type 2 diabetes mellitus without complications; Z79.899 Other long term (current) drug therapy
CPT/HCPCS: 36415; 71046; 71250; 74177; 80048; 80053; 81001; 82728; 82947; 82962; 83036; 83615; 83690; 84145; 84484; 85007; 85025; 85379; 85610; 85730; 86140; 87040; 93005; 96365; 96372; 96375; G0378; C9113; J0456; J0696; J1100; J1170; J1650; J1815; J2405; J2765; J7030; J7050; J8540; Q9967; U0003-CS